=== PATIENT | female | born 1950 | race Caucasian/White ===

== ENCOUNTER → 2017-04-12 | Outpatient (CLI) | payer BC ==
[~2017-04-12] MED LIST: LEVO100T7 PO; LEVO1TAB33 PO; LINE600T5 PO
--- NOTE | 2017-04-12 15:37 | MAMMOGRAPHY REPORT ---
BILATERAL DIGITAL SCREENING MAMMOGRAM WITH CAD: 04/12/2017 CLINICAL HISTORY: Routine screening. TECHNIQUE: Current study was also evaluated with a Computer Aided Detection (CAD) system. Bilateral CC and MLO views were obtained. COMPARISON: Comparison is made to exams dated: 04/08/2016 mammogram, 04/07/2015 mammogram, 04/02/2014 mamm ogram, 03/27/2013 mammogram, 12/27/2011 mammogram, and 12/21/2010 mammogram - [facility] er. BREAST COMPOSITION: The tissue of both breasts is heterogeneously dense, which may obscure small mas ses. FINDINGS: No suspicious masses, calcifications, or areas of architectural distortion are noted in ei ther breast. There has been no significant interval change compared to prior exams. Bilateral benign appearing calcifications are not significantly changed. Obscured mass in the left upper outer quadr ant is stable dating back to at least the 2006 exam. IMPRESSION: ACR BI-RADS CATEGORY 2: BENIGN There is no mammographic evidence of malignancy. A 1 year screening mammogram is recommended. The pa tient will receive written notification of the results. Approximately 10% of breast cancers are not detected with mammography. A negative mammographic report should not delay biopsy if a clinically suggestive mass is present. Es Rondon M.D. ah/:04/12/2017 09:00:36 Glass Handler: Krzysztof SMALLS(Camilo)(M), [facility] letter sent: Normal 1/2 BI-RADS Code: ACR BI-RADS Category 2: Benign
== END | disposition home or self-care (01) ==
LOC: C.MAMM 08:29
PROVIDERS: ATTEND Obstetrics & Gynecology
DX: Z12.31 Encounter for screening mammogram for malignant neoplasm of breast (principal)

== ENCOUNTER → 2017-07-04 | Outpatient (CLI) | payer BC ==
[2017-07-04 12:19] LABS: BASO % 0.3 %; BASO ABS # 0.01 K/uL (0-0.2); COMPLETE YES; HEMATOCRIT 39.7 % (37-47); IG% 0.3 %; LYMPH % 26.2 %; MEAN CELL VOLUME 95.9 fL (80-100); MEAN CORPUSCULAR HEMOGLOBIN 30.9 pg (25-34); MEAN CORPUSCULAR HGB CONC 32.2 g/dl (32-36); MEAN PLATELET VOLUME 9.1 fL (7.4-10.4); MONO % 11.3 %; NEUT % 60.9 %; PLATELET COUNT 304 K/uL (130-400); RED BLOOD COUNT 4.14 M/uL (4.2-5.4); WHITE BLOOD COUNT 3.82 K/uL (4.8-10.8)
[2017-07-04 12:25] LABS: ALT/SGPT 19 U/L (12-78); BLOOD UREA NITROGEN 14 mg/dl (7-18); BUN/CREATININE RATIO 21.4 (10-20); CALCIUM 9.2 mg/dl (8.5-10.1); CARBON DIOXIDE 25 mmol/L (21-32); CHLORIDE 104 mmol/L (98-107); CHOLESTEROL 205 mg/dl (0-200); CREATININE 0.65 mg/dl (0.60-1.20); GLUCOSE 94 mg/dl (70-99); POTASSIUM 4.4 mmol/L (3.5-5.1); SODIUM 138 mmol/L (136-145)
[2017-07-04 12:36] LABS: ALB/GLOB RATIO 0.6 (0.9-2); ALKALINE PHOSPHATASE 85 U/L (45-117); AST/SGOT 23 U/L (15-37); CHOLESTEROL/HDL RATIO 2.2; HDL CHOLESTEROL 92 mg/dl; LDL CHOLESTEROL CALCULATED 103 mg/dl; TRIGLYCERIDES 48 mg/dl (0-150); VERY LOW DENSITY LIPOPROT CALC 10 mg/dl
== END | disposition home or self-care (01) ==
LOC: C.LAB1850 10:56
PROVIDERS: ATTEND Nurse Practitioner Adult Health
DX: Z00.00 Encounter for general adult medical examination without abnormal findings (principal); E03.9 Hypothyroidism, unspecified

== ENCOUNTER → 2017-08-16 | Outpatient (CLI) | payer BC | END | disposition home or self-care (01) | LOC: C.PAPS 09:55 | PROVIDERS: ATTEND Obstetrics & Gynecology | DX: Z12.4 Encounter for screening for malignant neoplasm of cervix (principal); N95.2 Postmenopausal atrophic vaginitis ==

== ENCOUNTER 2020-02-21 09:49 | Observation (INO) ==
[2020-02-21] MEDS ORDERED: SODIUM CHLORIDE 0.9% 500 ML IV SCH (10:15)
--- NOTE | 2020-02-21 10:18 | Emergency Department Note ---
Impression & Plan Acute GI bleeding, Diffuse abdominal pain, Colitis, BRBPR (bright red blood per rectum) ED Provider Note NAME: TALAT DAVIS AGE: 69 SEX: F : 1950 ARRIVES VIA: Walk-In INFORMANT: [Patient] ED PROVIDER(S): [Rivas Swann MD] CHIEF COMPLAINT: Rectal bleeding HISTORY OF PRESENT ILLNESS: The patient is a 69-year-old female presents the ER with rectal bleeding. The patient states that 8 hours ago, she awoke with crampy, severe, sharp abdominal pain. The pain was a 6/10. No pain radiation. She used the bathroom multiple times and eventually, her stool became bloody. Her pain decreased to a 3/10 but the bleeding increased. She presents for evaluation. She has not eaten any bad food. She has not been around anybody who has been sick or ill. She has not had cough or congestion or chest pain. No fever. She was slightly nauseated but there was no vomiting. She has no history of previous GI bleeding. She does take aspirin daily. REVIEW OF SYSTEMS: See HPI for pertinent positives and negatives. A total of ten systems were reviewed and were otherwise negative. PMHx/PSHx: See Below SOCIAL HISTORY: See Below. PHYSICAL EXAM: GENERAL: Patient is in no acute distress. HEENT: No acute trauma, normocephalic atraumatic, mucous membranes moist, no nasal congestion, no scleral icterus. NECK: No stridor, no adenopathy, no meningismus, trachea is midline. LUNGS: Clear to auscultation bilaterally, no wheeze, no rhonchi, breath sounds equal. HEART: Without murmurs gallops or rubs, regular rate and rhythm. ABDOMEN: Soft, mildly diffusely tender, bowel sounds positive, no hernias, no peritonitis. EXTREMITIES: No cyanosis or edema, full range of motion of all the joints without pain or difficulty, no signs for acute trauma. NEUROLOGIC: Oriented x 3, no acute motor or sensory deficits, no focal weakness. SKIN: No rash, no jaundice, no diaphoresis. Rectal: No anal tear or bleeding hemorrhoid. Digital rectal exam does show bright red blood within the rectum. This does test heme positive. No mass felt. DIFFERENTIAL DIAGNOSIS: Diverticulosis, AVM, coagulopathy, colitis, inflammatory bowel disease, ramirez gnancy, Madonna-Martini tear, esophagitis, peptic ulcer disease, variceal bleed, gastritis, epistaxis, fissure, hemorrhoids, as well as other pathologies. EMERGENCY DEPARTMENT COURSE/PROCEDURES: ECG: Indication was GI bleed. The EKG shows a normal sinus rhythm. There is no ST elevation, no PVCs. The rate is 74. The QTc is 461. Continuous Cardiac Monitoring: An order was placed for continuous cardiac monitoring. The monitor shows a rate of 79 with normal sinus rhythm. MEDICAL DECISION MAKING: There is no leukocytosis or concerning anemia. No coagulopathy. No significant electrolyte abnormality or kidney failure. No concerning liver enzyme elevation. Blood type was O+. Abdominal and pelvis CT shows colitis. No abscess, no bowel obstruction. EKG shows a sinus rhythm, no acute ischemia. On exam, the patient was not toxic or febrile. She did have bright red blood noted within her rectum. The patient received IV saline for hydration. She did not require anything for pain. The patient presents with abdominal pain and rectal bleeding. She is likely suffering colonic bleeding from the site of her colitis. Given the findings on CT, given the persistent bright red blood per rectum, a hospital stay, observation, further work-up was felt warranted. I spoke to the patient, I talked with case management. The on-call hospitalist was consulted. Past Med/Surg History Medical History Dry eye Dry mouth Hypothyroidism Irregular heart beat medical doctor aware just watches Rheumatoid arthritis mild and no meds Surgical History History of cataract extraction with lens replacement RIGHT History of total hip arthroplasty left Hx of tubal ligation Hx of vein stripping radio frequent ablation - left leg Family History Father Myocardial infarction Prostate cancer Denies family history of Ovarian cancer Breast cancer Colorectal cancer Social History Preferred Language: Lithuanian Communication Ability: Effective Visual Impairment: No Limitations Hearing Ability: Normal Cistern Room Working Supervisor Required: No Beliefs That Will Affect Care: None marital status: Current Living Situation: Spouse current occupational status: retired Other Information That Helps Us Care for You: No Feels Safe at Home: Yes Safety Concerns: Feels Safe At This Time Smoking Status: Former smoker Tobacco Type: cigarettes ; Cigarettes Per Day: 20 per day, 10 years ; Do You Dip or Chew Tobacco: No ; Smoking End Date: 1978 ; Second Hand Exposure: No ; Tobacco Cessation Education Requested by Patient: No Hx Alcohol Use: Yes Alcohol type: wine Hx Substance Use: No Childhood Exposure to Second-Hand Smoke: Yes Dental Care, Regularly: Yes Physical Activity Frequency: 5-6 Times per Week Seatbelt Use: always Sunscreen Use: Yes Allergies Allergies Allergy/AdvReac Type Severity Reaction Status Date / Time nickel Allergy Intermediate raised red Verified 02/21/20 10:59 rASH Penicillins Allergy Intermediate SWELLING, Verified 02/21/20 10:59 HIVES adhesive AdvReac Intermediate BANDAIDES Verified 02/21/20 10:59 LEAVE REDDENED, RASH AREA Home Meds Home Medications Medication Instructions Recorded Confirmed aspirin 325 mg PO HS 02/21/20 02/21/20 levothyroxine 100 mcg PO QAM 02/21/20 02/21/20 Results & Data (ED) Vital Signs Vital Signs - 24 hr 02/21/20 10:00 02/21/20 10:17 02/21/20 11:49 Temperature 36.9 C Temperature Source Oral Pulse Rate 80 Pulse Rate [Apical] 84 Respiratory Rate 16 18 Blood Pressure 170/88 H Blood Pressure [Left Arm] 157/94 H Blood Pressure Mean 115 Blood Pressure Mean [Left Arm] 115 Pulse Oximetry 97 97 97 Oxygen Delivery Method Room Air Room Air Sepsis Recent Fever Within 48 Hours No Sepsis New/Unexplained Change in Mental Status No Sepsis Action Taken by Nursing No Action Required Home Medications Current Medication List: was personally reviewed by me Laboratory Data Attestation: I reviewed the patient's lab results. Result diagrams: 02/21/20 10:19 02/21/20 10:19 Lab Results 02/21/20 02/21/20 02/21/20 Range/Units 10:18 10:19 10:19 WBC 8.24 (4.8-10.8) K/uL RBC 4.38 (4.2-5.4) M/uL Hgb 13.9 (12.0-16.0) g/dL Hct 41.4 (37-47) % MCV 94.5 (80-100) fL MCH 31.7 (25-34) pg MCHC 33.6 (32-36) g/dL RDW Std Deviation 43.5 (36.4-46.3) fL RDW Coeff of Prudencio 12.7 (11.5-14.5) % Plt Count 279 (130-400) K/uL MPV 9.4 (7.4-10.4) fL Immature Gran % (Auto) 0.0 % Neut % (Auto) 89.9 % Lymph % (Auto) 7.6 % Bleckley % (Auto) 2.5 % Eos % (Auto) 0.0 % Baso % (Auto) 0.0 % Immature Gran # (Auto) 0.00 (0.00-0.02) K/uL Neut # (Auto) 7.40 H (1.4-6.5) K/uL Lymph # (Auto) 0.63 L (1.2-3.4) K/uL Bleckley # (Auto) 0.21 (0.11-0.59) K/uL Eos # (Auto) 0.00 (0-0.5) K/uL Baso # (Auto) 0.00 (0-0.2) K/uL PT 10.6 (9.0-12.0) Seconds INR 1.0 (0.9-1.1) APTT 28.0 (21.0-31.0) Seconds PTT Ratio 1.0 Sodium (136-145) mmol/L Potassium (3.5-5.1) mmol/L Chloride (98-107) mmol/L Carbon Dioxide (21-32) mmol/L Anion Gap (3-11) BUN (7-18) mg/dl Creatinine (0.6-1.2) mg/dl Est Cr Clr Drug Dosing ml/min Est GFR ( Amer) Est GFR (Non-Af Amer) BUN/Creatinine Ratio (10-20) Glucose (70-99) mg/dl Calcium (8.5-10.1) mg/dl Total Bilirubin (0.2-1) mg/dl AST (15-37) U/L ALT (12-78) U/L Alkaline Phosphatase (45-117) U/L Total Protein (6.4-8.2) gm/dl Albumin (3.4-5.0) gm/dl Globulin (2.5-4.0) gm/dl Albumin/Globulin Ratio (0.9-2) Blood Type O Positive Antibody Screen NEGATIVE 02/21/20 Range/Units 10:19 WBC (4.8-10.8) K/uL RBC (4.2-5.4) M/uL Hgb (12.0-16.0) g/dL Hct (37-47) % MCV (80-100) fL MCH (25-34) pg MCHC (32-36) g/dL RDW Std Deviation (36.4-46.3) fL RDW Coeff of Prudencio (11.5-14.5) % Plt Count (130-400) K/uL MPV (7.4-10.4) fL Immature Gran % (Auto) % Neut % (Auto) % Lymph % (Auto) % Bleckley % (Auto) % Eos % (Auto) % Baso % (Auto) % Immature Gran # (Auto) (0.00-0.02) K/uL Neut # (Auto) (1.4-6.5) K/uL Lymph # (Auto) (1.2-3.4) K/uL Bleckley # (Auto) (0.11-0.59) K/uL Eos # (Auto) (0-0.5) K/uL Baso # (Auto) (0-0.2) K/uL PT (9.0-12.0) Seconds INR (0.9-1.1) APTT (21.0-31.0) Seconds PTT Ratio Sodium 138 (136-145) mmol/L Potassium 3.9 (3.5-5.1) mmol/L Chloride 105 (98-107) mmol/L Carbon Dioxide 23 (21-32) mmol/L Anion Gap 10.0 (3-11) BUN 26 H (7-18) mg/dl Creatinine 0.72 (0.6-1.2) mg/dl Est Cr Clr Drug Dosing 74.5 ml/min Est GFR ( Amer) 98.3 Est GFR (Non-Af Amer) 84.9 BUN/Creatinine Ratio 36.4 H (10-20) Glucose 149 H (70-99) mg/dl Calcium 8.8 (8.5-10.1) mg/dl Total Bilirubin 0.4 (0.2-1) mg/dl AST 29 (15-37) U/L ALT 29 (12-78) U/L Alkaline Phosphatase 81 (45-117) U/L Total Protein 8.8 H (6.4-8.2) gm/dl Albumin 3.6 (3.4-5.0) gm/dl Globulin 5.2 H (2.5-4.0) gm/dl Albumin/Globulin Ratio 0.7 L (0.9-2) Blood Type Antibody Screen Administered Medications Sodium Chloride (Nss 1000ml) 1,000 mls @ 80 mls/hr IV .[id number] [facility] Stop: 02/22/20 03:44 Last Admin: 02/21/20 16:01 Dose: 80 mls/hr Documented by: [id number] Ciprofloxacin (Cipro) 400 mg in 200 mls @ 100 mls/hr IV Q12H [facility]; Protocol Stop: 03/02/20 16:59 Last Admin: 02/21/20 17:33 Dose: 100 mls/hr Documented by: [id number] Metronidazole (Flagyl) 500 mg in 100 mls @ 100 mls/hr IV Q8H [facility] Stop: 03/02/20 16:59 Last Admin: 02/21/20 17:33 Dose: 100 mls/hr Documented by: [id number] Sucralfate (Carafate) 1 gm PO QID PRN PRN Reason: Indigestion Stop: 03/22/20 16:59 Last Admin: 02/21/20 14:44 Dose: 1 gm Documented by: [id number] Discontinued Medications Sodium Chloride (Nss) 500 mls @ 999 mls/hr IV .Q31M [facility] Stop: 02/21/20 10:45 Last Infusion: 02/21/20 11:03 Dose: 0 mls/hr Documented by: [id number] Admin: 02/21/20 10:28 Dose: 999 mls/hr Documented by: [id number] Ioversol (Optiray 320 100ml) 93 ml IV ONCE PRN PRN Reason: Interaction Checking Stop: 02/25/20 11:08 Last Admin: 02/21/20 11:10 Dose: 93 ml Documented by: [id number] Imaging Data Radiologist's Impression: CT OF THE ABDOMEN AND PELVIS WITH CONTRAST CLINICAL HISTORY: bloody stool COMPARISON STUDY: None. TECHNIQUE: Following IV administration of 93 mL of Optiray-320, axial images of the abdomen and pelvis were obtained from the lung bases to the proximal femurs. Images were reviewed in the axial, sagittal, and coronal planes. IV contrast was administered without complication. Automated exposure control was utilized for the study. A dose lowering technique was utilized adhering to the principles of ALARA. CT DOSE: 467.49 mGy.cm FINDINGS: No pneumatosis, free air or portal venous gas is present. The liver, spleen, adrenal glands, left kidney and pancreas are normal. Note is made of a 4 mm calculus within the lower pole of the right kidney. There is no hydro nephrosis. No biliary or pancreatic ductal dilatation is noted. Major vasculature is patent. Note is made of moderate wall thickening of the transverse colon and the descending colon with pericolonic infiltration. There is no abscess. Extensive colonic diverticulosis is noted. Left hip arthroplasty is noted. Moderate osteoarthritis of the right hip is present. The appendix is unremarkable. There are no suspicious osseous lesions. Images of the pelvis are degraded by streak artifact from left hip arthroplasty. IMPRESSION: 1. Moderate wall thickening of the transverse colon and descending colon with pericolonic infiltration. This represents a nonspecific colitis which could be infectious, ischemic or inflammatory in etiology. No free air or abscess. 2. Extensive colonic diverticulosis without evidence for acute diverticulitis. 3. 4 mm right renal calculus. Blood Pressure Blood Pressure Findings: Elevated blood pressure Blood Pressure Disposition: further management by hospitalist Discharge Plan Visit Data *Final* Discharge Date/Time: 02/21/20 14:58 Chief Complaint: GI Assessment Stated Complaint: ABD PAIN, RECTAL BLEEDING ED Provider: Rivas Swann Discharge Problem: Acute GI bleeding, Diffuse abdominal pain, Colitis, BRBPR (bright red blood per rectum) Patient Disposition: Admitted As Inpatient Condition: Good Discharge Instructions Interventions: ED Discharge Assessment Last Done: 02/21/20 14:58
[2020-02-21 10:27] LABS: Hematocrit (blood only) 41.4 % (37-47); Hemoglobin 13.9 g/dL (12.0-16.0); Lymphocytes # (auto) 0.63 K/uL (1.2-3.4); Lymphocytes % (auto) 7.6 %; Mean Corpuscular Hemoglobin 31.7 pg (25-34); Mean Corpuscular Hgb Conc 33.6 g/dL (32-36); Mean Corpuscular Volume 94.5 fL (80-100); Mean Platelet Volume 9.4 fL (7.4-10.4); Monocytes # (auto) 0.21 K/uL (0.11-0.59); Monocytes % (auto) 2.5 %; Neutrophils % (auto) 89.9 %; Platelet Count 279 K/uL (130-400); RDW Coefficient of Variation 12.7 % (11.5-14.5); RDW Standard Deviation 43.5 fL (36.4-46.3); Red Blood Count 4.38 M/uL (4.2-5.4); White Blood Count 8.24 K/uL (4.8-10.8)
[2020-02-21 10:38] LABS: Prothrombin Time 10.6 Seconds (9.0-12.0)
[2020-02-21 10:45] LABS: Albumin Level 3.6 gm/dl (3.4-5.0); BUN Creatinine Ratio 36.4 (10-20); Calcium 8.8 mg/dl (8.5-10.1); Creatinine Clr Calc Pharmacy 74.5 ml/min; Est GFR (African American) 98.3; Est GFR (Non-African American) 84.9; Potassium 3.9 mmol/L (3.5-5.1)
[2020-02-21 10:48] LABS: Albumin Globulin Ratio 0.7 (0.9-2); Bilirubin,Total 0.4 mg/dl (0.2-1); Globulin 5.2 gm/dl (2.5-4.0); Total Protein 8.8 gm/dl (6.4-8.2)
[2020-02-21] MEDS ORDERED: IOVERSOL 100ml IV PRN (11:09)
--- NOTE | 2020-02-21 11:23 | CT Scan Report ---
CT OF THE ABDOMEN AND PELVIS WITH CONTRAST CLINICAL HISTORY: bloody stool COMPARISON STUDY: None. TECHNIQUE: Following IV administration of 93 mL of Optiray-320, axial images of the abdomen and pelvi s were obtained from the lung bases to the proximal femurs. Images were reviewed in the axial, sagitt al, and coronal planes. IV contrast was administered without complication. Automated exposure contro l was utilized for the study. A dose lowering technique was utilized adhering to the principles of A JESSE. CT DOSE: 467.49 mGy.cm FINDINGS: No pneumatosis, free air or portal venous gas is present. The liver, spleen, adrenal glands , left kidney and pancreas are normal. Note is made of a 4 mm calculus within the lower pole of the r ight kidney. There is no hydronephrosis. No biliary or pancreatic ductal dilatation is noted. Major v asculature is patent. Note is made of moderate wall thickening of the transverse colon and the descen ding colon with pericolonic infiltration. There is no abscess. Extensive colonic diverticulosis is no gio. Left hip arthroplasty is noted. Moderate osteoarthritis of the right hip is present. The appendi x is unremarkable. There are no suspicious osseous lesions. Images of the pelvis are degraded by stre ak artifact from left hip arthroplasty. IMPRESSION: 1. Moderate wall thickening of the transverse colon and descending colon with pericolonic infiltratio n. This represents a nonspecific colitis which could be infectious, ischemic or inflammatory in etiol ogy. No free air or abscess. 2. Extensive colonic diverticulosis without evidence for acute diverticulitis. 3. 4 mm right renal calculus. ACT 112: Negative or not required by law. Electronically signed by: Rashi Mendes M.D. 02/21/2020 11:22 AM
--- NOTE | 2020-02-21 11:56 | History & Physical Report ---
Date of Service February 21, 2020 Assessment & Plan (1) Acute GI bleeding: (2) Colitis: -Admit to [facility] with telemetry hemoglobin 13.9 on admission, recheck 1800, no need for blood transfusion at this time, if changes will need attending to complete consent -NSS at 80 mL/h x 12 hours -Keep n.p.o. 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 It is likely that this is a lower GI bleed with bright red blood versus upper GI bleed. -GI consult, Dr. Steen -CT of the abdomen reviewed, no signs of acute diverticulitis, appears to be colitis -Patient with family pet who had diarrhea within the past 2 days, possible transmission? 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 She presents with acute onset of abdominal pain beginning around 2 AM this morning, then developed diarrhea x2, then followed by bright red blood per rectum times multiple more episodes. This was significant abdominal pain rated a 10/10, and patient states "it felt like labor". Was in her normal state of health yesterday evening ate dinner without any difficulty which included cooked chicken. Her also ate this and does not have any symptoms. Ironically,. patient admits that her dog had diarrhea for 24 hours 2 days ago, and she was primarily taking care of her and had to give her a bath but that she has recovered completely at this point. She denies any fevers but admits to some chills. No known COVID-19 contacts, no recent travel. Patient has never had GI work-up as an outpatient, she has completed Cologuard testing at home, last being in July 2019. She has never had a formal colonoscopy. Hemoglobin is stable at 13.[address] of the abdomen reveals thickened transverse and descending regions of the colon and pericolonic infiltration, as well as a 4 mm right renal calculus. Allergies Allergy/AdvReac Type Severity Reaction Status Date / Time nickel Allergy Intermediate raised red Verified 02/21/20 10:59 rASH Penicillins Allergy Intermediate SWELLING, Verified 02/21/20 10:59 HIVES adhesive AdvReac Intermediate BANDAIDES Verified 02/21/20 10:59 LEAVE REDDENED, RASH AREA Home Medications Home Medications Medication Instructions Recorded Confirmed Type aspirin 325 mg PO HS 02/21/20 02/21/20 History levothyroxine 100 mcg PO QAM 02/21/20 02/21/20 History Past Med/Surg History Social History Preferred Language: Lithuanian Communication Ability: Effective Visual Impairment: No Limitations Hearing Ability: Normal Certified Surgical Technologist Required: No Beliefs That Will Affect Care: None marital status: Current Living Situation: Spouse current occupational status: retired Other Information That Helps Us Care for You: No Feels Safe at Home: Yes Safety Concerns: Feels Safe At This Time Smoking Status: Former smoker Tobacco Type: cigarettes ; Cigarettes Per Day: 20 per day, 10 years ; Do You Dip or Chew Tobacco: No ; Smoking End Date: 1978 ; Second Hand Exposure: No ; Tobacco Cessation Education Requested by Patient: No Hx Alcohol Use: Yes Alcohol type: wine Hx Substance Use: No Childhood Exposure to Second-Hand Smoke: Yes Dental Care, Regularly: Yes Physical Activity Frequency: 5-6 Times per Week Seatbelt Use: always Sunscreen Use: Yes Review of Systems Review of Systems: Constitutional: + Chills, no fever or sweats Eyes: No diplopia, no worsening or blurred vision ENT: normal hearing, no trouble swallowing Respiratory: No cough, sputum, dyspnea at rest or on exertion Cardiovascular: No chest pain, tightness or palpitations Abdomen: As per HPI Musculoskeletal: No joint pain, calf pain, swelling Neurologic: No weakness, numbness/tingling, or balance problems Psychiatric: No anxiety or depression Skin: No rash or itch Physical Exam Physical Exam: General: awake, alert, no apparent distress Head: Normocephalic, atraumatic ENT: PERRL, EOMI, no pharyngeal exudate, mucous membranes moist Chest: Clear to auscultation, on room air, no adventitious breath sounds Cardiac: Regular rate and rhythm, no murmur, no JVD, normal peripheral pulses, good capillary refill Abdominal: NABS x 4 quadrants, soft, nondistended, + minimally tender to palpation, no rebound, guarding Extremities: Normal inspection, no peripheral edema or erythema, calfs nontender to palpation Psych: Normal mood and affect Neuro: AAO x 3, no gross motor deficits, speech is clear, no peripheral sensory deficits Skin: no rash or erythema Results & Data Results & Data ([facility]) Vital Signs (Past 12 Hours) Vital Signs Temp Pulse Pulse Resp BP BP Pulse Ox 02/21/20 11:49 84 18 157/94 H 97 02/21/20 10:17 97 02/21/20 10:00 36.9 C 80 16 170/[address] OF THE ABDOMEN AND PELVIS WITH CONTRAST CLINICAL HISTORY: bloody stool COMPARISON STUDY: None. TECHNIQUE: Following IV administration of 93 mL of Optiray-320, axial images of the abdomen and pelvis were obtained from the lung bases to the proximal femurs. Images were reviewed in the axial, sagittal, and coronal planes. IV contrast was administered without complication. Automated exposure control was utilized for the study. A dose lowering technique was utilized adhering to the principles of ALARA. CT DOSE: 467.49 mGy.cm FINDINGS: No pneumatosis, free air or portal venous gas is present. The liver, spleen, adrenal glands, left kidney and pancreas are normal. Note is made of a 4 mm calculus within the lower pole of the right kidney. There is no hydronephros is. No biliary or pancreatic ductal dilatation is noted. Major vasculature is patent. Note is made of moderate wall thickening of the transverse colon and the descending colon with pericolonic infiltration. There is no abscess. Extensive colonic diverticulosis is noted. Left hip arthroplasty is noted. Moderate osteoarthritis of the right hip is present. The appendix is unremarkable. There are no suspicious osseous lesions. Images of the pelvis are degraded by streak artifact from left hip arthroplasty. IMPRESSION: 1. Moderate wall thickening of the transverse colon and descending colon with pericolonic infiltration. This represents a nonspecific colitis which could be infectious, ischemic or inflammatory in etiology. No free air or abscess. 2. Extensive colonic diverticulosis without evidence for acute diverticulitis. 3. 4 mm right renal calculus. Code Status & VTE Plan Code Status Full code-discussed with the patient at bedside Supervising Physician Co-Signing Physician Notes Patient was seen and examined independently I discussed the case with Genesis TORRES I reviewed pertinent past medical social family history and also the plan of care and agree with the plan of care. Any exceptions will be noted below Generally healthy on few meds( aspirin) presented with lower abd pain and hematochezia, initial hgb is stable will be brought in for suspected lower GIB, likely diverticular as pain less consistent with ischemic colitis abd is soft and non tender, no rebound no guarding PG Care Time/CCT Total # of Minutes Spent Total Time Spent with Patient: Total time spent is greater than 50% in coordination of care (as documented) at patient's floor/unit and/or counseling patient: Coding Level of Care Code 80166 Initial Inpt Care Lvl 3 Diagnoses Acute GI bleeding K92.2 Colitis K52.9 Hypothyroidism E03.9 DVT prophylaxis Z29.9
[2020-02-21] MEDS: SUCRALFATE 1 GM/10 ML UDC PO PRN ×2 (14:44→21:21)
[2020-02-21] MEDS ORDERED: SODIUM CHLORIDE 0.9% 1000ML 1,000 ML IV SCH (15:45)
[2020-02-21] MEDS ORDERED: ONDANSETRON INJ 2 MG/ML 2 ML VIAL IV PRN (15:45)
--- NOTE | 2020-02-21 16:12 | Gastrointestinal Consultation ---
Date of Consultation February 21, 2020 Assessment & Plan (1) Colitis: (2) BRBPR (bright red blood per rectum): (3) Diffuse abdominal pain: Most likely cause of patient's symptoms is Ischemic colitis. I would recommend Cipro and Flagyl therapy for 10 days to prevent translocation across the damaged colonic wall to prevent a secondary bacterial infection. Await stool studies, as it is less likely infectious Start clear liquid diet and advance slowly to low fiber as tolerated over the next few days. She has never had a colonoscopy and will need this approximately 8 weeks from now to ensure healing Dr. Sanderson is covering this weekend if there are any questions regarding her GI care. Thanks. History of Present Illness Reason for Consultation: Bloody diarrhea, abdominal pain Attending Physician: Julien Hawley MD History of Present Illness 69 yo CF who presented to the ER with complaints of Left sided abdominal pain and bloody diarrhea. She states that she was in her normal state of health until last night, and went to bed. At 2 AM, she states she woke up with sharp epigastric abdominal pain, which radiated to the Left side. She states that she felt like she had to use the bathroom, and had multiple blood stools. Since early this AM, she states that she has had "at least 60 bowel movements." She subsequently presented to the ER, and underwent a CT abd/pelvis with IV contrast only which showed colitis involving the transverse and descending colon. She was subsequently admitted and was resting comfortably in her bed at the time I saw her. She states that she still has abdominal pain, described as 5/10, constant, crampy, involving the LLQ, non-radiating without alleviating or exacerbating factors. She has not had a bowel movement since her arrival. She denies any lightheadedness, dizziness, chest pain, recent constipation, drug use, or history of diabetes. She has no further complaints. Allergies Allergy/AdvReac Type Severity Reaction Status Date / Time nickel Allergy Intermediate raised red Verified 02/21/20 10:59 rASH Penicillins Allergy Intermediate SWELLING, Verified 02/21/20 10:59 HIVES adhesive AdvReac Intermediate BANDAIDES Verified 02/21/20 10:59 LEAVE REDDENED, RASH AREA Home Medications Home Medications Medication Instructions Recorded Confirmed Type aspirin 325 mg PO HS 02/21/20 02/21/20 History levothyroxine 100 mcg PO QAM 02/21/20 02/21/20 History Patient History Medical History Dry eye Dry mouth Hypothyroidism Irregular heart beat medical doctor aware just watches Rheumatoid arthritis mild and no meds Surgical History History of cataract extraction with lens replacement RIGHT History of total hip arthroplasty left Hx of tubal ligation Hx of vein stripping radio frequent ablation - left leg Family History Father Myocardial infarction Prostate cancer Denies family history of Ovarian cancer Breast cancer Colorectal cancer Social History Preferred Language: Syrian Communication Ability: Effective Visual Impairment: No Limitations Hearing Ability: Normal Hvac Lead Required: No Beliefs That Will Affect Care: None marital status: Current Living Situation: Spouse current occupational status: retired Other Information That Helps Us Care for You: No Feels Safe at Home: Yes Safety Concerns: Feels Safe At This Time Smoking Status: Former smoker Tobacco Type: cigarettes ; Cigarettes Per Day: 20 per day, 10 years ; Do You Dip or Chew Tobacco: No ; Smoking End Date: 1978 ; Second Hand Exposure: No ; Tobacco Cessation Education Requested by Patient: No Hx Alcohol Use: Yes Alcohol type: wine Hx Substance Use: No Childhood Exposure to Second-Hand Smoke: Yes Dental Care, Regularly: Yes Physical Activity Frequency: 5-6 Times per Week Seatbelt Use: always Sunscreen Use: Yes Review of Systems Review of Systems: All systems reviewed & are unremarkable except as noted in HPI & below Physical Exam Constitutional: WD/WN, vitals as above Eyes: PERRL, conjunctivae normal, anicteric sclerae ENMT: external ear and nose normal, oropharynx normal Neck: trachea midline, no thyromegaly Respiratory: normal respiratory effort, lungs clear to auscultation Cardiovascular: RRR, no murmur, no edema Gastrointestinal (Abdomen): Inspection/Auscultation: + hyperactive bowel sounds Percussion/Palpation: + abdomen tender and abdomen soft; no guarding and abdomen not rigid Skin: no rashes, warm and dry Psychiatric: A+Ox3, euthymic affect Results & Data ([place]) Vital Signs (Past 12 Hours) Vital Signs Temp Pulse Pulse Pulse Resp BP BP 02/21/20 15:29 36.9 C 79 16 156/76 H 02/21/20 13:00 75 18 132/81 02/21/20 11:49 84 18 157/94 H 02/21/20 10:17 02/21/20 10:00 36.9 C 80 16 170/88 H Pulse Ox 02/21/20 15:29 97 02/21/20 13:00 97 02/21/20 11:49 97 02/21/20 10:17 97 02/21/20 10:00 97 PG Care Time/CCT Total # of Minutes Spent Total Time Spent with Patient: Total time spent is greater than 50% in coordination of care (as documented) at patient's floor/unit and/or counseling patient: Coding Level of Care Code 58813 Initial Inpt Care Lvl 3 Diagnoses Colitis K52.9 BRBPR (bright red blood per rectum) K62.5 Diffuse abdominal pain R10.84
[2020-02-21] MEDS: metroNIDAZOLE 500 MG/100 ML BAG IV SCH (17:33)
[2020-02-21] MEDS: CIPROFLOXACIN / D5W 400 MG/200 ML BAG IV SCH (17:33)
[2020-02-21 18:19] LABS: Hematocrit (blood only) 37.3 % (37-47); Hemoglobin 12.2 g/dL (12.0-16.0)
--- NOTE | 2020-02-21 19:47 | Electrocardiogram Report ---
Test Reason : Blood Pressure : / mmHG Vent. Rate : 074 BPM Atrial Rate : 074 BPM P-R Int : 160 ms QRS Dur : 076 ms QT Int : 416 ms P-R-T Axes : 044 056 063 degrees QTc Int : 461 ms Normal sinus rhythm Normal ECG No previous ECGs available Confirmed by Abhay Willams ([id number]) on 02/21/2020 7:46:48 PM Referred By: REFERRED SELF Confirmed By:Zev Willams
[2020-02-21] MEDS: ACETAMINOPHEN 325 MG TAB PO PRN (20:54)
[2020-02-21] MEDS ORDERED: FAMOTIDINE 20MG/5ML IV PUSH IV SCH (21:00)
[2020-02-21] MEDS: FAMOTIDINE 20 MG in SYRINGE 3 ML IV SCH (21:21)
[2020-02-21] MEDS ORDERED: HYDROmorphone INJ 1 MG/ML SYRINGE IV PRN (22:20)
[2020-02-22] MEDS: metroNIDAZOLE 500 MG/100 ML BAG IV SCH ×3 (00:57→17:27)
[2020-02-22] MEDS: CIPROFLOXACIN / D5W 400 MG/200 ML BAG IV SCH ×2 (05:13→17:27)
[2020-02-22] MEDS: LEVOTHYROXINE SODIUM 100 MCG TABLET PO SCH (05:15)
[2020-02-22 06:07] LABS: Hematocrit (blood only) 34.5 % (37-47); Hemoglobin 11.6 g/dL (12.0-16.0); Mean Corpuscular Hemoglobin 31.8 pg (25-34); Mean Corpuscular Hgb Conc 33.6 g/dL (32-36); Mean Corpuscular Volume 94.5 fL (80-100); Mean Platelet Volume 9.3 fL (7.4-10.4); Platelet Count 230 K/uL (130-400); RDW Coefficient of Variation 12.9 % (11.5-14.5); RDW Standard Deviation 44.4 fL (36.4-46.3); Red Blood Count 3.65 M/uL (4.2-5.4); White Blood Count 8.23 K/uL (4.8-10.8)
[2020-02-22 06:48] LABS: Albumin Level 2.7 gm/dl (3.4-5.0); BUN Creatinine Ratio 23.4 (10-20); Calcium 8.2 mg/dl (8.5-10.1); Creatinine Clr Calc Pharmacy 89.4 ml/min; Est GFR (African American) 107.6; Est GFR (Non-African American) 92.9; Potassium 3.4 mmol/L (3.5-5.1)
[2020-02-22 07:05] LABS: Albumin Globulin Ratio 0.6 (0.9-2); Bilirubin,Total 0.6 mg/dl (0.2-1); Globulin 4.3 gm/dl (2.5-4.0)
[2020-02-22] MEDS: FAMOTIDINE 20 MG in SYRINGE 3 ML IV SCH ×2 (08:07→21:04)
--- NOTE | 2020-02-22 09:03 | Gastroenterology Progress Note ---
Date of Service February 22, 2020 Assessment & Plan (1) Ischemic colitis: Patient admitted with signs and symptoms suggestive of ischemic colitis. She seems to be improving with IV hydration and antibiotic coverage. Is Dr. Steen recommended would suggest will cultures and the need for C. difficile infection. Recommendations 10-day course of antibiotics Continue with IV hydration If patient pain-free and without hematochezia tomorrow then consider advancing diet and perhaps early discharge Patient to have a colonoscopy with Dr. Steen in 8 to 12 weeks Please call with any questions or concerns during the remainder of the admission Admission and Anticipated Discharge Date Admission Date: February 21, 2020 Subjective The patient reports that her discomfort is starting to subside significantly. She was seen yesterday by thought to have findings consistent with ischemic colitis. He had recommended empiric antibiotic coverage which seems to have helped her significantly. Review of Systems Constitutional: no sweats and no malaise Respiratory: no change in sputum Cardiovascular: no chest pain with activity and no dyspnea at rest Physical Exam Eyes: PERRL, conjunctivae normal, anicteric sclerae Neck: trachea midline, no thyromegaly Respiratory: normal respiratory effort; no respiratory distress Gastrointestinal (Abdomen): Percussion/Palpation: + abdomen tender; no guarding and abdomen not rigid Mild tenderness in the left lower quadrant Results & Data ([facility]) Vital Signs (Past 12 Hours) Vital Signs Temp Pulse Pulse Resp BP BP Pulse Ox 02/22/20 07:55 36.4 C L 77 18 134/72 94 02/22/20 06:53 76 02/22/20 04:16 36.4 C L 77 20 125/67 96 02/22/20 00:00 90 02/21/20 23:00 36.9 C 71 20 117/64 96 02/21/20 22:00 90 Laboratory Results Laboratory Results - last 24 hr 02/21/20 02/21/20 02/21/20 10:18 10:19 10:19 WBC 8.24 RBC 4.38 Hgb 13.9 Hct 41.4 MCV 94.5 MCH 31.7 MCHC 33.6 RDW Std Deviation 43.5 RDW Coeff of Prudencio 12.7 Plt Count 279 MPV 9.4 Immature Gran % (Auto) 0.0 Neut % (Auto) 89.9 Lymph % (Auto) 7.6 [place] % (Auto) 2.5 Eos % (Auto) 0.0 Baso % (Auto) 0.0 Immature Gran # (Auto) 0.00 Neut # (Auto) 7.40 H Lymph # (Auto) 0.63 L [place] # (Auto) 0.21 Eos # (Auto) 0.00 Baso # (Auto) 0.00 PT 10.6 INR 1.0 APTT 28.0 PTT Ratio 1.0 Sodium Potassium Chloride Carbon Dioxide Anion Gap BUN Creatinine Est Cr Clr Drug Dosing Est GFR ( Amer) Est GFR (Non-Af Amer) BUN/Creatinine Ratio Glucose Calcium Total Bilirubin AST ALT Alkaline Phosphatase Total Protein Albumin Globulin Albumin/Globulin Ratio Blood Type O Positive Antibody Screen NEGATIVE 02/21/20 02/21/20 02/22/20 10:19 18:09 05:49 WBC 8.23 RBC 3.65 L Hgb 12.2 11.6 L Hct 37.3 34.5 L MCV 94.5 MCH 31.8 MCHC 33.6 RDW Std Deviation 44.4 RDW Coeff of Prudencio 12.9 Plt Count 230 MPV 9.3 Immature Gran % (Auto) Neut % (Auto) Lymph % (Auto) [place] % (Auto) Eos % (Auto) Baso % (Auto) Immature Gran # (Auto) Neut # (Auto) Lymph # (Auto) [place] # (Auto) Eos # (Auto) Baso # (Auto) PT INR APTT PTT Ratio Sodium 138 Potassium 3.9 Chloride 105 Carbon Dioxide 23 Anion Gap 10.0 BUN 26 H Creatinine 0.72 Est Cr Clr Drug Dosing 74.5 Est GFR ( Amer) 98.3 Est GFR (Non-Af Amer) 84.9 BUN/Creatinine Ratio 36.4 H Glucose 149 H Calcium 8.8 Total Bilirubin 0.4 AST 29 ALT 29 Alkaline Phosphatase 81 Total Protein 8.8 H Albumin 3.6 Globulin 5.2 H Albumin/Globulin Ratio 0.7 L Blood Type Antibody Screen 02/22/20 05:49 WBC RBC Hgb Hct MCV MCH MCHC RDW Std Deviation RDW Coeff of Prudencio Plt Count MPV Immature Gran % (Auto) Neut % (Auto) Lymph % (Auto) [place] % (Auto) Eos % (Auto) Baso % (Auto) Immature Gran # (Auto) Neut # (Auto) Lymph # (Auto) [place] # (Auto) Eos # (Auto) Baso # (Auto) PT INR APTT PTT Ratio Sodium 140 Potassium 3.4 L Chloride 110 H Carbon Dioxide 24 Anion Gap 6.0 BUN 14 Creatinine 0.59 L Est Cr Clr Drug Dosing 89.4 Est GFR ( Amer) 107.6 Est GFR (Non-Af Amer) 92.9 BUN/Creatinine Ratio 23.4 H Glucose 124 H Calcium 8.2 L Total Bilirubin 0.6 AST 23 ALT 20 Alkaline Phosphatase 61 Total Protein 7.0 D Albumin 2.7 L Globulin 4.3 H Albumin/Globulin Ratio 0.6 L Blood Type Antibody Screen Diagnostic Findings CT OF THE ABDOMEN AND PELVIS WITH CONTRAST CLINICAL HISTORY: bloody stool COMPARISON STUDY: None. TECHNIQUE: Following IV administration of 93 mL of Optiray-320, axial images of the abdomen and pelvis were obtained from the lung bases to the proximal femurs. Images were reviewed in the axial, sagittal, and coronal planes. IV contrast was administered without complication. Automated exposure control was utilized for the study. A dose lowering technique was utilized adhering to the principles of ALARA. CT DOSE: 467.49 mGy.cm FINDINGS: No pneumatosis, free air or portal venous gas is present. The liver, spleen, adrenal glands, left kidney and pancreas are normal. Note is made of a 4 mm calculus within the lower pole of the right kidney. There is no hydronephrosis. No biliary or pancreatic ductal dilatation is noted. Major vasculature is patent. Note is made of moderate wall thickening of the transverse colon and the descending colon with pericolonic infiltration. There is no abscess. Extensive colonic diverticulosis is noted. Left hip arthroplasty is noted. Moderate osteoarthritis of the right hip is present. The appendix is unremarkable. There are no suspicious osseous lesions. Images of the pelvis are degraded by streak artifact from left hip arthroplasty. IMPRESSION: 1. Moderate wall thickening of the transverse colon and descending colon with pericolonic infiltration. This represents a nonspecific colitis which could be infectious, ischemic or inflammatory in etiology. No free air or abscess. 2. Extensive colonic diverticulosis without evidence for acute diverticulitis. 3. 4 mm right renal calculus. ACT 112: Negative or not required by law.
[2020-02-22] MEDS: ACETAMINOPHEN 325 MG TAB PO PRN (11:26)
--- NOTE | 2020-02-22 13:15 | Hospitalist Progress Note ---
Date of Service February 22, 2020 Assessment & Plan (1) Acute GI bleeding: (2) Ischemic colitis: -Appears to be ischemic colitis -hemoglobin 13.9 on admission, has dropped to 11.6 this morning -Continue clear liquid diet for now -GI consult, Dr. Steen - deneen recpadmini -Cont cipro flagyl (started 02/20) x 10 d course -IV famotidine twice daily, carafate -Holding [employer] daily aspirin for arthritis, can use Tylenol, patient admits to drinking wine on daily basis, discussion held regarding alcohol and NSAID combination which can contribute to GI bleeds. It is likely that this is a lower GI bleed with bright red blood versus upper GI bleed. -CT of the abdomen reviewed, no signs of acute diverticulitis, appears to be colitis -Patient with family pet who had diarrhea within the past 2 days, possible transmission? (3) Hypothyroidism: -Continue levothyroxine 100 mcg every morning (4) DVT prophylaxis: -Teds, no chemical prophylaxis secondary to GI bleed as above CODE: Full code Dispo: From home, discharge within 1-2 days pending improvement and hgb stable Admission and Anticipated Discharge Date Admission Date: February 21, 2020 Subjective The patient was seen and examined this morning. Pt states she is feeling better compared to yesterday. She still has some abdominal pain in the LLQ but no cramping. She has had BMs this morning, some minor streaking without BRBPR. She denies nausea and vomiting. Today she's feeling wiped out, bc she didn't have any sleep in the past 2 nights. Pt understands that she is on antibiotics and medication for her bowel. Anticipate being in the hospital another night. Review of Systems Review of Systems: Constitutional:+ fatigue, No fever, sweats or chills Eyes: No diplopia, no worsening or blurred vision ENT: normal hearing, no trouble swallowing Respiratory: No cough, sputum, dyspnea at rest or on exertion Cardiovascular: No chest pain, tightness or palpitations Abdomen: + LLQ pain, no nausea, vomiting, diarrhea or constipation Musculoskeletal: No joint pain, calf pain, swelling Neurologic: + generalized weakness, no numbness/tingling, or balance problems Psychiatric: No anxiety or depression Skin: No rash or itch Physical Exam Physical Exam: General: awake, alert, no apparent distress, + tired appearing Head: Normocephalic, atraumatic ENT: PERRL, EOMI, no pharyngeal exudate, mucous membranes moist Chest: Clear to auscultation, on room air, no adventitious breath sounds Cardiac: Regular rate and rhythm, no murmur, no JVD, normal peripheral pulses, good capillary refill Abdominal: NABS x 4 quadrants, soft, nondistended, + mild tenderness to palpation in the LLQ, no rebound, guarding Extremities: Normal inspection, no peripheral edema or erythema, calfs nontender to palpation Psych: Normal mood and affect Neuro: AAO x 3, no gross motor deficits, speech is clear, no peripheral sensory deficits Results & Data Results & Data ([facility]) Vital Signs (Past 12 Hours) Vital Signs Temp Pulse Pulse Resp BP BP Pulse Ox 02/22/20 11:24 36.7 C 97 H 18 102/69 136/66 95 02/22/20 07:55 36.4 C L 77 18 134/72 94 02/22/20 06:53 76 02/22/20 04:16 36.4 C L 77 20 125/67 96 PG Care Time/CCT Total # of Minutes Spent Total Time Spent with Patient: Total time spent is greater than 50% in cook fishing vessel rdination of care (as documented) at patient's floor/unit and/or counseling patient: Coding Level of Care Code 54625 Inpt Consult Level 3 Diagnoses Acute GI bleeding K92.2 Ischemic colitis K55.9 Hypothyroidism E03.9 DVT prophylaxis Z29.9
[2020-02-23] MEDS: metroNIDAZOLE 500 MG/100 ML BAG IV SCH ×2 (00:59→08:03)
[2020-02-23] MEDS: CIPROFLOXACIN / D5W 400 MG/200 ML BAG IV SCH (05:54)
[2020-02-23] MEDS: LEVOTHYROXINE SODIUM 100 MCG TABLET PO SCH (05:56)
[2020-02-23 07:13] LABS: Hematocrit (blood only) 36.8 % (37-47); Mean Corpuscular Hemoglobin 31.2 pg (25-34); Mean Corpuscular Hgb Conc 32.6 g/dL (32-36); Mean Corpuscular Volume 95.6 fL (80-100); Mean Platelet Volume 9.4 fL (7.4-10.4); Platelet Count 243 K/uL (130-400); RDW Coefficient of Variation 12.9 % (11.5-14.5); RDW Standard Deviation 44.3 fL (36.4-46.3); Red Blood Count 3.85 M/uL (4.2-5.4); White Blood Count 6.16 K/uL (4.8-10.8)
[2020-02-23 07:43] LABS: Albumin Level 2.8 gm/dl (3.4-5.0); BUN Creatinine Ratio 10.4 (10-20); Calcium 8.5 mg/dl (8.5-10.1); Creatinine Clr Calc Pharmacy 86.5 ml/min; Est GFR (African American) 106.5; Est GFR (Non-African American) 91.9; Potassium 3.4 mmol/L (3.5-5.1)
[2020-02-23 07:44] LABS: Albumin Globulin Ratio 0.6 (0.9-2); Bilirubin,Total 0.7 mg/dl (0.2-1); Globulin 4.9 gm/dl (2.5-4.0); Total Protein 7.7 gm/dl (6.4-8.2)
[2020-02-23] MEDS: FAMOTIDINE 20 MG in SYRINGE 3 ML IV SCH (08:03)
[2020-02-23] MEDS ORDERED: POTASSIUM CHLORIDE 20 MEQ TABCR PO STA (11:25)
--- NOTE | 2020-02-23 12:02 | Hospitalist Progress Note ---
Date of Service February 23, 2020 Assessment & Plan Admission and Anticipated Discharge Date Admission Date: February 21, 2020 Results & Data Results & Data ([facility]) Vital Signs (Past 12 Hours) Vital Signs Temp Pulse Pulse Resp BP BP Pulse Ox 02/23/20 11:00 36.4 C L 77 18 149/76 H 98 02/23/20 07:36 37.1 C 79 18 148/60 H 94 02/23/20 07:00 78 02/23/20 03:00 36.9 C 77 20 136/71 97 PG Care Time/CCT Total # of Minutes Spent Total Time Spent with Patient: Total time spent is greater than 50% in coordination of care (as documented) at patient's floor/unit and/or counseling patient: Coding
--- NOTE | 2020-02-23 15:02 | Discharge Summary ---
Date of Service February 23, 2020 Admission HPI Per Admitting Provider This is a 69-year-old female with past medical history of hypothyroidism and history of DJD of the left hip status post total hip replacement. She presents with acute onset of abdominal pain beginning around 2 AM this morning, then developed diarrhea x2, then followed by bright red blood per rectum times multiple more episodes. This was significant abdominal pain rated a 10/10, and patient states "it felt like labor". Was in her normal state of health yesterday evening ate dinner without any difficulty which included cooked chicken. Her also ate this and does not have any symptoms. Ironically,. patient admits that her dog had diarrhea for 24 hours 2 days ago, and she was primarily taking care of her and had to give her a bath but that she has recovered completely at this point. She denies any fevers but admits to some chills. No known COVID-19 contacts, no recent travel. Patient has never had GI work-up as an outpatient, she has completed Cologuard testing at home, last being in July 2019. She has never had a formal colonoscopy. Hemoglobin is stable at 13.[address] of the abdomen reveals thickened transverse and descending regions of the colon and pericolonic infiltration, as well as a 4 mm right renal calculus. Admission Exam Per Admitting Provider General: awake, alert, no apparent distress Head: Normocephalic, atraumatic ENT: PERRL, EOMI, no pharyngeal exudate, mucous membranes moist Chest: Clear to auscultation, on room air, no adventitious breath sounds Cardiac: Regular rate and rhythm, no murmur, no JVD, normal peripheral pulses, good capillary refill Abdominal: NABS x 4 quadrants, soft, nondistended, + minimally tender to palpation, no rebound, guarding Extremities: Normal inspection, no peripheral edema or erythema, calfs nontender to palpation Psych: Normal mood and affect Neuro: AAO x 3, no gross motor deficits, speech is clear, no peripheral sensory deficits Skin: no rash or erythema Principal Diagnosis Colitis Discharge Exam Constitutional WD/WN, vitals as above no acute distress Eyes + anicteric sclerae and PERRL ENMT external ear and nose normal, oropharynx normal Neck trachea midline, no thyromegaly Respiratory normal respiratory effort, lungs clear to auscultation Cardiovascular RRR, no murmur, no edema Gastrointestinal (Abdomen) normal bowel sounds, soft, nontender, no hepatosplenomegaly Musculoskeletal no cyanosis or clubbing, extremities motor strength 5/5 Skin no rashes, warm and dry Neurologic patellar DTR's 2+ bilat, sensation intact Psychiatric A+Ox3, euthymic affect Lymphatic no cervical or axillary lymphadenopathy Discharge Data Allergies Allergy/AdvReac Type Severity Reaction Status Date / Time nickel Allergy Intermediate raised red Verified 02/21/20 10:59 rASH Penicillins Allergy Intermediate SWELLING, Verified 02/21/20 10:59 HIVES adhesive AdvReac Intermediate BANDAIDES Verified 02/21/20 10:59 LEAVE REDDENED, RASH AREA Consultations 02/21/20 11:58 ED Decision to Admit Stat 02/21/20 15:45 Consult Case Management - Discharge Planning Routine Consult Gastroenterology Routine Ordered Studies 02/21/20 10:14 CT abd pelvis IV con only Stat Hospital Course (1) Acute GI bleeding: (2) Ischemic colitis: CT A/P with evidence of colitis. Significant improvement with IV Cipro/Flagyl without return of hematochezia GI consultation - To have outpatient scope with Dr. Steen in the next 8-12 weeks Cipro/Flagyl x 10 days. Given two doses for evening and morning following discharge until prescription filled. Stool culture preliminary without isolate growth to date ASA Held in setting of GIB. Educated to avoid etoh/NSAIDs (3) Hypothyroidism: Continued home levothyroxine 100 mcg every morning (4) DVT prophylaxis: Teds no chemical prophylaxis secondary to GI bleed as above Discharged home. To have outpatient scope in 8-12 weeks Total Time Total Time Spent Total Time Spent (In Minutes): 45 Discharge Plan Discharge Items Patient Disposition: Home - Self-Care Reason For Visit: GIB,GASTRITIS Discharge Diagnosis: Colitis Condition on Discharge: Good Goals: You have been hospitalized for an acute medical problem. During your stay at [facility], we have made an effort to correct the problem that brought you to the hospital while keeping you as comfortable as possible. Medications were used to bring your condition under control and your discharge instructions will include directions for any medications you should take after leaving the hospital. Please make sure you see your Primary Care Provider as part of your follow up plan. Activity: Resume your previous activity Non-emergency contact: Primary Care Provider Call non-emergency contact if: you have any medication questions, your symptoms worsen and you have a fever Follow-up/Referrals: Deangelo Steen DO [Physician] - (8-12 weeks for colonoscopy) Suzanna Kwong MD [Primary Care Provider] - Diet: Low Fiber Addtl Attending Provider Instructions: You have been hospitalized for ischemic colitis which was treated with antibiotics and IV fluids. Gastroenterology was consulted, Dr. Steen, and it is recommended that you complete a 10 day course of antibiotics and have a colonoscopy as an outpatient in the next 8-12 weeks. You have been sent prescriptions for both ciprofloxacin and metronidazole. Please take full course as prescribed. Please avoid alcohol, NSAIDs (Ibuprofen, Motrin) caffeine, nuts and foods high in fiber for the next couple of weeks and advance your diet as tolerated. You may use tylenol as needed for pain, but please make sure to not exceed 3,000mg in a 24 hour period of time. You should hold your home Aspirin for the next week, as this increases bleeding as well. Of note, DO NOT DRINK ALCOHOL AT ALL while on metronidazole as this has a tendency to cause considerable vomiting. Please follow up with your primary care provider in the next week. Please call Dr. Steen's office if you do not hear from them early next week. Please return to the emergency department if you develop any worsening abdominal pain, blood in your stool, or for any symptoms that are concerning for you. It has been a pleasure being a part of the medical team providing for you while you have been in the hospital. Take care! Pending Studies at Discharge: No Stand-Alone Forms: My [facility] Medications and DC Order Prescriptions: New ciprofloxacin HCl 500 mg tablet 500 mg PO BID 8 Days Qty: 16 RF: 0 metronidazole [Flagyl] 500 mg tablet 500 mg PO BID 8 Days Qty: 16 RF: 0 famotidine [Pepcid] 20 mg tablet 20 mg PO BID 8 Days Qty: 16 RF: 0 Continued levothyroxine 100 mcg tablet 100 mcg PO QAM RF: 0 Discontinued aspirin 325 mg Tablet 325 mg PO HS RF: 0 Discharge Orders: Discharge Order (Routine); Ordered 02/23/20 Ordered By: Renita Cruz Admission Data Admit Date/Time: 02/21/20 12:04 Attending Provider: Julien Hawley Admit Provider: Julien Hawley Primary Care Provider: Suzanna Kwong Other Providers: Julien Hawley ; Deangelo Steen Other Interventions: Discharge Summary Assessment (RN) Last Done: 02/23/20 16:17 Coding Level of Care Code D/C Day Management >30 mins Diagnoses Acute GI bleeding K92.2 Ischemic colitis K55.9 Hypothyroidism E03.9 DVT prophylaxis Z29.9
[2020-02-23] MEDS ORDERED: CONSULT PHARMACY STA (15:38)
[2020-02-23] MEDS ORDERED: CIPROFLOXACIN 500 MG TAB PO SCH ×2 (15:45→21:00)
[2020-02-23] MEDS ORDERED: metroNIDAZOLE 500 MG TAB PO SCH ×2 (15:45→22:00)
== END 2020-02-23 17:35 | disposition home or self-care (01) ==
LOC: ED 09:49 → 2N 12:04 → INTOOBSV 12:04 → 2N 14:58
DX: Z88.0 Allergy status to penicillin; Z79.890 Hormone replacement therapy; K92.2 Gastrointestinal hemorrhage, unspecified; K55.9 Vascular disorder of intestine, unspecified; Z79.82 Long term (current) use of aspirin; F17.210 Nicotine dependence, cigarettes, uncomplicated; Z91.048 Other nonmedicinal substance allergy status; E03.9 Hypothyroidism, unspecified